=== PATIENT | female | born 1995 | race Caucasian/White ===

== ENCOUNTER 2016-03-16 18:54 | Emergency (ER) | payer OTHER ==
[~2016-03-16] VITALS: Ht 172.7 cm; Wt 118.0 kg
[~2016-03-16 18:54] MED LIST: NITR-29 PO; PYRI200T4 PO; ZOFR4TAB PO
[2016-03-16 18:57] VITALS: BP 141/90; PULSE 71; RESP 16; TEMP 97.6; O2SAT 97
[2016-03-16] MEDS ORDERED: SODIUM CHLOR 0.9% 1000 ML INJ 1,000 ML IV SCH ×2 (19:49→21:04)
--- NOTE | 2016-03-16 19:51 | PD ---
HPI Chief Complaint: GI Complaint Time Seen by Provider: 19:51 Travel History International Travel<30 days: No Contact w/Intl Traveler<30days: No Traveled to known affect area: No History of Present Illness HPI 21-year-old female approximately 9 weeks presents to the emergency department for evaluation of nausea and vomiting. Patient states that she said nausea and vomiting for the past 2 days and has been unable to keep food or fluids down. States that 5 days ago she was seen in our emergency department for nausea and vomiting and given Zofran which temporarily alleviated her symptoms but over the past 1.5 days she has been vomiting even with the use of Zofran. She denies any fever, chills, abdominal pain, diarrhea , constipation, hematemesis, bloody stool, vaginal discharge, vaginal bleeding, burning with urination, painful urination. No other complaints. PFSH Past Medical History Medical History: Denies Significant Hx Hx Anticoagulant Therapy: No Cardiovascular Problems: Yes Chemotherapy: No Cerebrovascular Accident: No Diabetes: No Diminished Hearing: No Respiratory: No Immunizations Current: No ?: LMP: 12/30/15 : 2 Para: 1 Miscarriage: 0 Past Surgical History Section: Yes Cholecystectomy: Yes Gynecologic Surgery: Yes Hysterectomy: No Social History Alcohol Use: No Tobacco Use: No Substance Use: No (marijuana) Allergies-Medications (Allergen,Severity, Reaction): Coded Allergies: No Known Allergies (Unverified , 03/16/16) Reported Meds & Prescriptions Reported Meds & Active Scripts Active Zofran (Ondansetron HCl) 4 Mg Tab 4 Mg PO Q6HR PRN Review of Systems Except as stated in HPI: all other systems reviewed are Neg Physical Exam Narrative GENERAL: Well-nourished and well-developed pleasant female patient in no acute distress who is nontoxic appearing. SKIN: Warm and dry. HEAD: Normocephalic and atraumatic. EYES: No injection, drainage, or hyphema noted. PERRLA. EOMI. ENT: No nasal drainage noted. Oropharynx is clear. NECK: Supple and the trachea is midline. CARDIOVASCULAR: Regular rate and rhythm. RESPIRATORY: Breath sounds are equal bilaterally with no accessory muscle use, wheezing, rhonchi, or crackles. GASTROINTESTINAL: Abdomen is soft, non-tender, and nondistended. MUSCULOSKELETAL: No obvious deformities, swelling, cyanosis, or ecchymosis is present throughout the upper and lower extremities. Patient has full range of motion without any signs of neurovascular compromise. NEUROLOGICAL: Awake, alert, and oriented. Normal speech and gait. Cranial nerves are grossly intact. Data Data Last Documented VS Vital Signs Date Time Temp Pulse Resp B/P Pulse Ox O2 Delivery O2 Flow Rate FiO2 03/16/16 19:40 16 03/16/16 18:57 97.6 71 141/90 97 Room Air Orders Complete Blood Count With Diff (03/16/16 19:49) Comprehensive Metabolic Panel (03/16/16 19:49) Urinalysis - C+S If Indicated (03/16/16 19:49) Iv Access Insert/Monitor (03/16/16 19:49) Ecg Monitoring (03/16/16 19:49) Sodium Chloride 0.9% Flush (Ns Flush) (03/16/16 20:00) Lipase (03/16/16 19:49) Metoclopramide Inj (Reglan Inj) (03/16/16 20:00) Sodium Chlor 0.9% 1000 Ml Inj (Ns 1000 M (03/16/16 19:49) Beta Hcg (Quant/Titer) (03/16/16 19:49) Sodium Chlor 0.9% 1000 Ml Inj (Ns 1000 M (03/16/16 21:04) Labs Laboratory Tests Test 03/16/16 03/16/16 20:05 21:58 White Blood Count 10.5 TH/MM3 Red Blood Count 4.36 MIL/MM3 Hemoglobin 12.0 GM/DL Hematocrit 35.4 % Mean Corpuscular Volume 81.1 FL Mean Corpuscular Hemoglobin 27.5 PG Mean Corpuscular Hemoglobin 33.9 % Concent Red Cell Distribution Width 15.7 % Platelet Count 249 TH/MM3 Mean Platelet Volume 10.1 FL Neutrophils (%) (Auto) 80.2 % Lymphocytes (%) (Auto) 14.5 % Monocytes (%) (Auto) 4.4 % Eosinophils (%) (Auto) 0.7 % Basophils (%) (Auto) 0.2 % Neutrophils # (Auto) 8.4 TH/MM3 Lymphocytes # (Auto) 1.5 TH/MM3 Monocytes # (Auto) 0.5 TH/MM3 Eosinophils # (Auto) 0.1 TH/MM3 Basophils # (Auto) 0.0 TH/MM3 CBC Comment DIFF FINAL Differential Comment Sodium Level 134 MEQ/L Potassium Level 3.6 MEQ/L Chloride Level 101 MEQ/L Carbon Dioxide Level 22.1 MEQ/L Anion Gap 11 MEQ/L Blood Urea Nitrogen 6 MG/DL Creatinine 0.68 MG/DL Estimat Glomerular Filtration 107 ML/MIN Rate Random Glucose 87 MG/DL Calcium Level 9.2 MG/DL Total Bilirubin 0.5 MG/DL Aspartate Amino Transf 9 U/L (AST/SGOT) Alanine Aminotransferase 18 U/L (ALT/SGPT) Alkaline Phosphatase 55 U/L Total Protein 8.1 GM/DL Albumin 4.0 GM/DL Lipase 96 U/L Human Chorionic Gonadotropin, [address]62 MIU/ML Quant Urine Color YELLOW Urine Turbidity HAZY Urine pH 8.0 Urine Specific [place] 1.024 Urine Protein TRACE mg/dL Urine Glucose (UA) NEG mg/dL Urine Ketones 150 mg/dL Urine Occult Blood NEG Urine Nitrite NEG Urine Bilirubin NEG Urine Urobilinogen LESS THAN 2.0 MG/DL Urine Leukocyte Esterase NEG Urine RBC 2 /hpf Urine WBC 1 /hpf Urine Squamous Epithelial 7 /hpf Cells Urine Mucus FEW /lpf Microscopic Urinalysis Comment CULT NOT INDICATED MDM Medical Decision Making Medical Screen Exam Complete: Yes Emergency Medical Condition: Yes Differential Diagnosis Hyperemesis gravidarum versus dehydration versus electrolyte abnormality versus UTI Narrative Course 21-year-old female presents to the emergency department for evaluation of nausea and vomiting in the setting of early . Patient is afebrile, vital signs are stable. Abdominal examination is benign. IV access is obtained , labs have been drawn and sent. Patient is given a liter fluid and Reglan 10 mg IV. CBC is unremarkable. CMP is unremarkable. Beta-hCG is 82,952. This is elevated appropriately from previous beta-hCG. Urinalysis shows 150 ketones and few mucus. No sign of infection. Patient reports great improvement of symptoms after only 1 dose of Reglan. She is received 2 L of IV fluid. She has been able to eat a few crackers and drink water and gregor ion. We'll give her a prescription for Reglan. Discussed when to return to the emergency Department. Advised follow-up with her digital sales assistant. Patient verbalizes understanding and agreement with treatment plan. I discussed the case with my attending physician Dr. Torres who is aware of the patients history, physical examination findings, and treatment plan. 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 Follow-up with your OBGYN. Return to the ED for any acute worsening of symptoms. Med/Other Pt SpecificInfo: Prescription(s) given Disposition: 01 DISCHARGE HOME Condition: Stable Marlyn Madrid Mar 16, 2016 19:51
[2016-03-16] MEDS ORDERED: SODIUM CHLORIDE 0.9% FLUSH 5 ML FLUSH IVF PRN (20:00)
[2016-03-16] MEDS ORDERED: METOCLOPRAMIDE HCL 10 MG/2 ML VIAL IV PUSH ONE (20:00)
[2016-03-16 20:32] LABS: AUTOMATED NEUTROPHIL # 8.4 TH/MM3 (1.8-7.7); BASOPHIL % 0.2 % (0.0-2.0); EOSINOPHIL # 0.1 TH/MM3 (0-0.4); EOSINOPHIL % 0.7 % (0.0-4.0); HEMATOCRIT 35.4 % (35.0-46.0); HEMO FLAGS DIFF FINAL; LYMPH % 14.5 % (9.0-44.0); LYMPHOCYTE # 1.5 TH/MM3 (1.0-4.8); MEAN CELL VOLUME 81.1 FL (80.0-100.0); MEAN CORPUSCULAR HEMOGLOBIN 27.5 PG (27.0-34.0); MEAN CORPUSCULAR HGB CONC 33.9 % (32.0-36.0); MONO % 4.4 % (0.0-8.0); NEUT % 80.2 % (16.0-70.0); PLATELET COUNT 249 TH/MM3 (150-450); RED BLOOD COUNT 4.36 MIL/MM3 (4.00-5.30); RED CELL DISTRIBUTION WIDTH 15.7 % (11.6-17.2); WHITE BLOOD COUNT 10.5 TH/MM3 (4.0-11.0)
[2016-03-16 20:53] LABS: ANION GAP 11 MEQ/L (5-15); AST (GOT) 9 U/L (15-37); BICARBONATE 22.1 MEQ/L (21.0-32.0); BLOOD UREA NITROGEN 6 MG/DL (7-18); CHLORIDE 101 MEQ/L (98-107); GLOMERULAR FILTRATION RATE 107 ML/MIN (>89); POTASSIUM 3.6 MEQ/L (3.5-5.1); SODIUM (NA) 134 MEQ/L (136-145)
[2016-03-16 21:11] LABS: ALKALINE PHOSPHATASE 55 U/L (45-117); ALT (GPT) 18 U/L (10-53); BETA HCG QUANT 82952 MIU/ML (0-5); TOTAL BILIRUBIN ADULT 0.5 MG/DL (0.2-1.0)
[2016-03-16 22:24] LABS: BLOOD, URINE NEG (NEG); COMMENT (UR) CULT NOT INDICATED; CULTURE IF INDICATED CULT NOT INDICATED; GLUCOSE,URINE NEG (NEG); KETONE, URINE 150 mg/dL (NEG); MUCUS URINE FEW /lpf (OCC); NITRITE,URINE NEG (NEG); SQUAMOUS EPITHELIAL CELL URINE 7 /hpf (0-5); URINE COLOR YELLOW (YELLW/STRAW)
[2016-03-16] MEDS ORDERED: REGL10TA5 PO (22:42)
== END 2016-03-17 01:01 | disposition home or self-care (01) ==
LOC: NEPC 18:54
DX: O21.0 Mild hyperemesis gravidarum (principal); Z3A.09 9 weeks gestation of pregnancy
CPT/HCPCS: 80053; 81001; 83690; 84702; 85025; 96374; 99284; J2765; J7030

== ENCOUNTER 2016-03-27 19:23 | Emergency (ER) | payer OTHER ==
[~2016-03-27] VITALS: Ht 170.2 cm; Wt 118.0 kg
[~2016-03-27 19:23] MED LIST changes: -NITR-29 PO; -PYRI200T4 PO; +REGL10TA5 PO
[2016-03-27 19:26] VITALS: BP 153/88; PULSE 93; RESP 18; TEMP 98; O2SAT 93
[2016-03-27] MEDS ORDERED: ONDANSETRON HCL 4 MG/2 ML VIAL ONE (20:08)
[2016-03-27 21:14] LABS: AUTOMATED NEUTROPHIL # 8.5 TH/MM3 (1.8-7.7); BASOPHIL % 0.2 % (0.0-2.0); EOSINOPHIL % 0.2 % (0.0-4.0); HEMATOCRIT 36.3 % (35.0-46.0); HEMO FLAGS DIFF FINAL; LYMPH % 14.4 % (9.0-44.0); LYMPHOCYTE # 1.5 TH/MM3 (1.0-4.8); MEAN CELL VOLUME 81.5 FL (80.0-100.0); MEAN CORPUSCULAR HGB CONC 33.1 % (32.0-36.0); MONO % 4.2 % (0.0-8.0); PLATELET COUNT 233 TH/MM3 (150-450); RED BLOOD COUNT 4.45 MIL/MM3 (4.00-5.30); RED CELL DISTRIBUTION WIDTH 15.9 % (11.6-17.2); WHITE BLOOD COUNT 10.5 TH/MM3 (4.0-11.0)
[2016-03-27 21:36] LABS: ANION GAP 14 MEQ/L (5-15); BICARBONATE 18.5 MEQ/L (21.0-32.0); BLOOD UREA NITROGEN 5 MG/DL (7-18); CHLORIDE 103 MEQ/L (98-107); GLOMERULAR FILTRATION RATE 126 ML/MIN (>89); POTASSIUM 3.4 MEQ/L (3.5-5.1); SODIUM (NA) 135 MEQ/L (136-145)
[2016-03-27 21:40] LABS: ALKALINE PHOSPHATASE 54 U/L (45-117); ALT (GPT) 16 U/L (10-53); AST (GOT) 7 U/L (15-37); TOTAL BILIRUBIN ADULT 0.5 MG/DL (0.2-1.0)
[2016-03-27 22:42] LABS: BETA HCG QUANT 48672 MIU/ML (0-5)
[2016-03-28 00:17] LABS: BACTERIA, URINE RARE /hpf; BLOOD, URINE NEG (NEG); COMMENT (UR) CULT NOT INDICATED; CULTURE IF INDICATED CULT NOT INDICATED; GLUCOSE,URINE NEG (NEG); KETONE, URINE 150 mg/dL (NEG); MUCUS URINE FEW /lpf (OCC); NITRITE,URINE NEG (NEG); SQUAMOUS EPITHELIAL CELL URINE 5 /hpf (0-5); URINE COLOR YELLOW (YELLW/STRAW)
[2016-03-28 00:20] VITALS: BP 123/77; PULSE 63; RESP 20; O2SAT 100
[2016-03-28] MEDS ORDERED: ONDANSETRON HCL 4 MG/2 ML VIAL IV PUSH ONE ×2 (01:00)
[2016-03-28] MEDS ORDERED: ACETAMINOPHEN 325 MG TAB PO ONE (01:00)
[2016-03-28] MEDS ORDERED: FAMOTIDINE 20 MG/2 ML VIAL IV PUSH ONE (01:00)
[2016-03-28] MEDS ORDERED: SODIUM CHLOR 0.9% 1000 ML INJ 1,000 ML IV ONE (01:00)
[2016-03-28] MEDS ORDERED: ZOFR4TAB3 SL (02:47)
--- NOTE | 2016-03-28 02:47 | PD ---
HPI Chief Complaint: GI Complaint Time Seen by Provider: 00:44 Travel History International Travel<30 days: No Contact w/Intl Traveler<30days: No Traveled to known affect area: No History of Present Illness HPI Patient is a 21 year old female, approximately 12 weeks who comes in complaining of nausea and vomiting. She has had issues with this since week 8 of her . This is her second , and she says she had issues with nausea and vomiting during her first as well. She says she has some abdominal cramping. She had an ultrasound last time she was here that confirmed IUP. She has not had any vaginal discharge or leakage of fluids. She denies any dysuria, fever, chills. PFSH Past Medical History Medical History: Denies Significant Hx Hx Anticoagulant Therapy: No Cardiovascular Problems: Yes Chemotherapy: No Cerebrovascular Accident: No Diabetes: No Diminished Hearing: No Respiratory: No Immunizations Current: No Tetanus Vaccination: Unknown Influenza Vaccination: No ?: : 2 Para: 1 Miscarriage: 0 Past Surgical History Section: Yes Cholecystectomy: Yes Gynecologic Surgery: Yes Hysterectomy: No Social History Alcohol Use: No Tobacco Use: No Substance Use: No Allergies-Medications (Allergen,Severity, Reaction): Coded Allergies: No Known Allergies (Unverified , 03/28/16) Reported Meds & Prescriptions Reported Meds & Active Scripts Active No Active Prescriptions or Reported Medications Review of Systems Except as stated in HPI: all other systems reviewed are Neg General / Constitutional: No: Fever, Chills HENT: No: Headaches, Lightheadedness Cardiovascular: No: Chest Pain or Discomfort Respiratory: No: Shortness of Breath Gastrointestinal: Positive: Nausea, Vomiting, Abdominal Pain Genitourinary: No: Dysuria Skin: No Rash, No Change in Pigmentation Neurologic: No: Weakness, Dizziness Physical Exam Narrative GENERAL: Awake and alert in no acute distress. SKIN: Warm and dry. HEAD: Atraumatic. Normocephalic. EYES: Pupils equal and round. No scleral icterus. ENT: Mucous membranes pink and moist. NECK: Trachea midline. No JVD. CARDIOVASCULAR: Regular rate and rhythm. No murmur appreciated. RESPIRATORY: No accessory muscle use. Clear to auscultation. Breath sounds equal bilaterally. GASTROINTESTINAL: Abdomen soft, nondistended. Mild tenderness to the epigastric area and across the lower abdomen. No rebound or guarding. No CVA tenderness. MUSCULOSKELETAL: No obvious deformities. No clubbing. No cyanosis. No edema. NEUROLOGICAL: Awake and alert. No obvious cranial nerve deficits. Motor grossly within normal limits. Normal speech. PSYCHIATRIC: Appropriate mood and affect; insight and judgment normal. Data Data Last Documented VS Vital Signs Date Time Temp Pulse Resp B/P Pulse Ox O2 Delivery O2 Flow Rate FiO2 03/28/16 00:20 63 20 123/77 100 Room Air 03/27/16 19:26 98.0 Orders Ondansetron Inj (Zofran Inj) (03/27/16 20:08) Complete Blood Count With Diff (03/27/16 20:30) Beta Hcg (Quant/Titer) (03/27/16 20:30) Urinalysis - C+S If Indicated (03/27/16 20:30) Lipase (03/27/16 20:30) Comprehensive Metabolic Panel (03/27/16 20:34) Ondansetron Inj (Zofran Inj) (03/28/16 01:00) Sodium Chlor 0.9% 1000 Ml Inj (Ns 1000 M (03/28/16 01:00) Ondansetron Inj (Zofran Inj) (03/28/16 01:00) Acetaminophen (Tylenol) (03/28/16 01:00) Famotidine Inj (Pepcid Inj) (03/28/16 01:00) Labs Laboratory Tests Test 03/27/16 03/27/16 20:30 23:45 White Blood Count 10.5 TH/MM3 Red Blood Count 4.45 MIL/MM3 Hemoglobin 12.0 GM/DL Hematocrit 36.3 % Mean Corpuscular Volume 81.5 FL Mean Corpuscular Hemoglobin 27.0 PG Mean Corpuscular Hemoglobin 33.1 % Concent Red Cell Distribution Width 15.9 % Platelet Count 233 TH/MM3 Mean Platelet Volume 10.3 FL Neutrophils (%) (Auto) 81.0 % Lymphocytes (%) (Auto) 14.4 % Monocytes (%) (Auto) 4.2 % Eosinophils (%) (Auto) 0.2 % Basophils (%) (Auto) 0.2 % Neutrophils # (Auto) 8.5 TH/MM3 Lymphocytes # (Auto) 1.5 TH/MM3 Monocytes # (Auto) 0.4 TH/MM3 Eosinophils # (Auto) 0.0 TH/MM3 Basophils # (Auto) 0.0 TH/MM3 CBC Comment DIFF FINAL Differential Comment Sodium Level 135 MEQ/L Potassium Level 3.4 MEQ/L Chloride Level 103 MEQ/L Carbon Dioxide Level 18.5 MEQ/L Anion Gap 14 MEQ/L Blood Urea Nitrogen 5 MG/DL Creatinine 0.59 MG/DL Estimat Glomerular Filtration 126 ML/MIN Rate Random Glucose 89 MG/DL Calcium Level 9.3 MG/DL Total Bilirubin 0.5 MG/DL Aspartate Amino Transf 7 U/L (AST/SGOT) Alanine Aminotransferase 16 U/L (ALT/SGPT) Alkaline Phosphatase 54 U/L Total Protein 8.1 GM/DL Albumin 4.0 GM/DL Lipase 104 U/L Human Chorionic Gonadotropin, 32699 MIU/ML Quant Urine Color YELLOW Urine Turbidity HAZY Urine pH 7.0 Urine Specific [place] 1.027 Urine Protein 30 mg/dL Urine Glucose (UA) NEG mg/dL Urine Ketones 150 mg/dL Urine Occult Blood NEG Urine Nitrite NEG Urine Bilirubin NEG Urine Urobilinogen LESS THAN 2.0 MG/DL Urine Leukocyte Esterase NEG Urine RBC 4 /hpf Urine WBC 1 /hpf Urine Squamous Epithelial 5 /hpf Cells Urine Bacteria RARE /hpf Urine Mucus FEW /lpf Microscopic Urinalysis Comment CULT NOT INDICATED MDM Medical Decision Making Medical Screen Exam Complete: Yes Emergency Medical Condition: Yes Differential Diagnosis Hyperemesis gravidarum, gastroenteritis, gastritis, pyelonephritis, UTI Narrative Course Patient is a 21-year-old female comes in complaining of nausea and vomiting during . Exam shows some mild tenderness in the epigastric area. Labs sent show no acute abnormalities. Urinalysis is negative for infection. Patient given IV fluids, Zofran, famotidine, Tylenol. Patient reports improvement of her symptoms. She is able to drink, and eat some crackers without vomiting. She will be discharged with prescription for Zofran ODT. Advised follow-up with OB. Advised to return to the ED as needed for any worsening symptoms. Diagnosis Primary Impression: Hyperemesis gravidarum Patient Instructions: General Instructions, Hyperemesis Gravidarum (ED) Additional Instructions: Drink plenty of fluids. Take Zofran as needed. Follow up with OB. Return to the ED as needed for any worsening symptoms. Scripts Ondansetron Odt (Zofran Odt)4 Mg Tab4 Mg SL Q6HR PRN (Nausea/Vomiting) #20 TAB Ref 0 Prov:Loan Gordillo MD 03/28/16 Disposition: 01 DISCHARGE HOME Condition: Stable Loan Gordillo MD Mar 28, 2016 02:47
== END 2016-03-28 03:14 | disposition home or self-care (01) ==
LOC: NEPE 19:23
DX: O21.0 Mild hyperemesis gravidarum (principal); R10.9 Unspecified abdominal pain; Z3A.12 12 weeks gestation of pregnancy
CPT/HCPCS: 80053; 81001; 83690; 84702; 85025; 96374; 96375; 96376; 99284; J2405

== ENCOUNTER 2017-03-18 11:40 | Emergency (ER) | payer MEDICAID, OTHER ==
[~2017-03-18] VITALS: Ht 170.2 cm; Wt 109.1 kg
[~2017-03-18 11:40] MED LIST changes: -REGL10TA5 PO; -ZOFR4TAB PO; +ZOFR4TAB3 SL
[2017-03-18 11:42] VITALS: BP 134/95; PULSE 82; RESP 14; TEMP 98.2; O2SAT 99
[2017-03-18] MEDS ORDERED: ZOLO100T PO (11:52)
--- NOTE | 2017-03-18 12:17 | PD ---
HPI Chief Complaint: Cold / Flu Symptoms Time Seen by Provider: 12:05 Travel History International Travel<30 days: No Contact w/Intl Traveler<30days: No Traveled to known affect area: No History of Present Illness HPI 22-year-old female presents to the emergency room for evaluation of nonproductive cough, congestion, and fever for the past 5 days. Maximum temperature at home was 102 last night. Fever broke on its own. She has not been taking any Tylenol or Motrin but has been taking Mucinex without any relief in symptoms. Says she has a mild sore throat but she thinks it's from coughing. She has history of bronchitis every year around this time. Denies any chronic medical conditions or daily medications. PFSH Past Medical History Hx Anticoagulant Therapy: No Cardiovascular Problems: Yes Chemotherapy: No Cerebrovascular Accident: No Diabetes: No Diminished Hearing: No Genitourinary: Yes (KIDNEY INFECTION 2011) Respiratory: No Immunizations Current: No ?: Not LMP: on now : 2 Para: 1 Miscarriage: 0 Past Surgical History Section: Yes Cholecystectomy: Yes Gynecologic Surgery: Yes Hysterectomy: No Social History Alcohol Use: No Tobacco Use: No Substance Use: No Allergies-Medications (Allergen,Severity, Reaction): Coded Allergies: No Known Allergies (Unverified , 03/28/16) Reported Meds & Prescriptions Reported Meds & Active Scripts Active Tessalon Perles (Benzonatate) 100 Mg Cap 100 Mg PO TID PRN Prednisone 20 Mg Tab 20 Mg PO DAILY 5 Days Reported Zoloft (Sertraline HCl) 100 Mg Tab 100 Mg PO HS Review of Systems Except as stated in HPI: all other systems reviewed are Neg Physical Exam Narrative GENERAL: Well-nourished, well-developed female in no acute distress. Afebrile. Ambulatory. SKIN: Focused skin assessment warm/dry. HEAD: Normocephalic. EYES: No scleral icterus. No injection or drainage. EARS: Bilateral pinnae and external canals appear within normal limits. Bilateral tympanic membranes without erythema, dullness or perforation. ENT: Mucosa pink and moist. Mildly erythematous pharynx without erythema or exudates. No uvular edema. No uvular, palatal, or tonsillar deviation. Airway patent. Nasal turbinates appear normal without nasal blood, purulent drainage or septal hematoma. NECK: Supple, trachea midline. No JVD or lymphadenopathy. CARDIOVASCULAR: Regular rate and rhythm without murmurs, gallops, or rubs. RESPIRATORY: Breath sounds equal bilaterally. No accessory muscle use. No crackles, rales, wheezes, or rhonchi. Data Data Last Documented VS Vital Signs Date Time Temp Pulse Resp B/P (MAP) Pulse Ox O2 Delivery O2 Flow Rate FiO2 03/18/17 11:42 98.2 82 14 134/95 (108) 99 Orders Orders Chest, Pa & Lat (03/18/17 ) Ed Discharge Order (03/18/17 12:53) MDM Medical Decision Making Medical Screen Exam Complete: Yes Emergency Medical Condition: Yes Medical Record Reviewed: Yes Differential Diagnosis Bronchitis, upper respiratory infection, pneumonia Narrative Course 22-year-old female presents to the emergency room for evaluation of nonproductive cough, congestion, and fever for the past 5 days. Maximum temperature was 102 last night. Patient is afebrile and well-appearing in the emergency room. She is coughing frequently. Lungs sounds clear and equal bilaterally. She is outside the window to receive treatment for flu. Chest x- ray is negative. This is bronchitis. Patient discharged with prescriptions for prednisone and Tessalon Perles. Told to follow up with PCP or return for worsening symptoms. She understands and agrees to plan. Diagnosis Primary Impression: Bronchitis Referrals: Primary Care Physician Additional Instructions: Tessalon Perles as directed, as needed for cough. Prednisone as directed, until gone. Follow-up with PCP. Return for worsening symptoms. Med/Other Pt SpecificInfo: Prescription(s) given Scripts Benzonatate (Tessalon Perles) 100 Mg Cap 100 MG PO TID Y for COUGH, #21 CAP 0 Refills Prov: Stephenie Gonsalez MD 03/18/17 Prednisone (Prednisone) 20 Mg Tab 20 MG PO DAILY for 5 Days, #5 TAB 0 Refills Prov: Stephenie Gonsalez MD 03/18/17 Disposition: 01 DISCHARGE HOME Condition: Stable Dunia Bain Mar 18, 2017 12:16
--- NOTE | 2017-03-18 12:47 | RADRPT ---
EXAM DATE/TIME: 03/18/2017 12:21 [facility] COMPARISON: CHEST PA & LAT, August 17, 2014, 13:34. INDICATIONS : Cough and fever x 5 days. MEDICAL HISTORY : None. SURGICAL HISTORY : None. ENCOUNTER: Initial ACUITY: 1 day PAIN SCORE: 0/10 LOCATION: Bilateral chest FINDINGS: PA and lateral views of the chest demonstrate the lungs to be symmetrically aerated without evidence of mass, infiltrate or effusion. The cardiomediastinal contours are unremarkable. Osseous structure s are intact. CONCLUSION: No acute disease. Jef Camejo MD on March 18, 2017 at 12:44 Board Certified Radiologist. This report was verified electronically.
[2017-03-18] MEDS ORDERED: PRED20 PO (12:52)
[2017-03-18] MEDS ORDERED: BENZ100 PO (12:52)
== END 2017-03-18 13:06 | disposition home or self-care (01) ==
LOC: NEPK 11:40
DX: J40 Bronchitis, not specified as acute or chronic (principal)
CPT/HCPCS: 71046; 99283